=== PATIENT | male | born 1930 | race Caucasian/White ===

== ENCOUNTER 2016-12-27 11:00 | Outpatient (RCR) | payer MEDICARE, BC, OTHER ==
[~2016-12-27 11:00] MED LIST: ASPIRIN 32325 MG/TAB PO; ATORVASTATIN; CEPHALEXIN500 M1 PO; COD; COUGH; FLEXERIL10 MG PO; HCTZ; HCTZ 25MG TAB25 MG PO; LEVAQUIN 5500 MG/TA1 PO; LIPITOR20 MG PO; LORTAB 5/500 501 TAB PO; LOTENSIN10 MG PO; LOTENSIN20 MG PO; MAREPA1200 MG PO; MASON NATURAL1200 MG PO; MULTIPLE VITAMI1 CAP PO; MULTIPLE VITAMI1 TA5 PO; NEXIUM 40MG40 MG PO; PLAVIX 75MG TAB75 MG PO; RESTORIL 1515 MG/CAP; RESTORIL 1515 MG/CAP PO; TAMIFLU 75MG75 MG PO; VENTOLIN0.09 MG IH
== END 2017-01-27 | disposition home or self-care (01) ==
LOC: WSPT
DX: M51.37 Other intervertebral disc degeneration, lumbosacral region (principal)
CPT/HCPCS: G8978-GP; G8979-GP; G8980-GP; G8981-GP; G8982-GP

== ENCOUNTER 2018-02-02 11:30 | Outpatient (RCR) | payer MEDICARE, BC, OTHER | END 2018-02-02 12:27 | disposition home or self-care (01) | LOC: WSPT 11:30 | DX: B02.29 Other postherpetic nervous system involvement (principal) | CPT/HCPCS: G8978-GP; G8979-GP ==

== ENCOUNTER 2018-07-22 11:15 | Outpatient (RCR) | payer MEDICARE, BC, OTHER | END 2018-08-09 | disposition home or self-care (01) | LOC: WSPT | DX: M51.37 Other intervertebral disc degeneration, lumbosacral region (principal); Z79.01 Long term (current) use of anticoagulants; Z79.899 Other long term (current) drug therapy | CPT/HCPCS: G8978-GP; G8979-GP; G8980-GP ==

== ENCOUNTER 2018-11-29 18:12 | Emergency (ER) | payer MEDICARE, BC, OTHER ==
[~2018-11-29] VITALS: Ht 172.7 cm; Wt 86.8 kg
[2018-11-29 18:24] VITALS: TEMP 97.6
[2018-11-29 19:05] LABS: BASO % 0.4 % (0.0-2.0); EOS # 0.4 (0.0-0.7); EOS % 5.4 % (0-4.0); GRAN # 4.4 (1.4-6.5); GRAN % 65.7 % (42.2-75.2); HEMOGLOBIN 11.5 g/dl (13.5-18.0); LYMPH # 1.1 (1.2-3.4); LYMPH % 16.9 % (20.0-51.0); MEAN CELL VOLUME 105 fl (80.0-100.0); MEAN CORPUSCULAR HEMOGLOBIN 35 pg (27.0-31.0); MEAN CORPUSCULAR HGB CONC 33 g/dl (33.0-37.0); MEAN PLATELET VOLUME 9.1 fl (7.4-10.4); MONO # 0.8 (0.1-0.6); MONO % 11.2 % (1.7-9.3); PLATELET COUNT 249 K/mm3 (130-400); RED BLOOD COUNT 3.32 M/mm3 (4.20-5.60); REDCELL DISTRIBUTION WIDTH-CV 13.9 % (11.5-14.5)
[2018-11-29 19:06] LABS: HEMATOCRIT 34.8 % (42.0-52.0)
[2018-11-29 19:19] LABS: ALBUMIN 4.2 gm/dL (3.5-5.0); BILIRUBIN,TOTAL 0.5 mg/dL (0.0-1.0); C-REACTIVE PROTEIN 0.9 mg/dL (0.0-0.9); CALCIUM 9.5 mg/dL (8.4-10.2); CREATININE, serum 1.6 mg/dL (0.66-1.25); POTASSIUM 4.3 mmol/L (3.4-5.0); TOTAL PROTEIN 9.3 gm/dL (6.4-8.2)
[2018-11-29 19:44] LABS: COLLECTION METHOD CLEAN CATCH
[2018-11-29 19:50] LABS: PH 6 (5-8); SQUAMOUS EPITHELIAL 0-2 /hpf; URINE APPEARANCE Clear; URINE BACTERIA None Seen /hpf; URINE BILIRUBIN Negative (NEGATIVE); URINE BLOOD 1+ (NEGATIVE); URINE COLOR Straw; URINE GLUCOSE Negative (NEGATIVE); URINE KETONE Negative (NEGATIVE); URINE LEUKOCYTE ESTERASE Negative (NEGATIVE); URINE NITRATE Negative (NEGATIVE); URINE PROTEIN(semi-quant) Negative (NEGATIVE); URINE RBC 0-2 /hpf; URINE UROBILINOGEN Negative (NEGATIVE)
[2018-11-29 21:39] VITALS: BP 175/92; PULSE 66
== END 2018-11-29 21:39 | disposition home or self-care (01) ==
LOC: COL.ER 18:12
PROVIDERS: Emergency Medicine
DX: G89.29 Other chronic pain (principal); M54.5 Low back pain; I10 Essential (primary) hypertension; K21.9 Gastro-esophageal reflux disease without esophagitis; E78.5 Hyperlipidemia, unspecified; M19.90 Unspecified osteoarthritis, unspecified site; Z79.02 Long term (current) use of antithrombotics/antiplatelets; Z86.73 Personal history of transient ischemic attack (TIA), and cerebral infarction without residual deficits
CPT/HCPCS: J2405; J3010; J7040

== ENCOUNTER → 2018-12-23 | Outpatient (CLI) | payer MEDICARE, BC, OTHER | LOC: COL.RAD 10:17 | DX: K80.20 Calculus of gallbladder without cholecystitis without obstruction (principal); N28.1 Cyst of kidney, acquired ==

== ENCOUNTER 2019-01-22 17:44 | Emergency (ER) | payer MEDICARE, BC, OTHER ==
[~2019-01-22] VITALS: Ht 172.7 cm; Wt 81.8 kg
[2019-01-22 17:55] VITALS: TEMP 98.1
[2019-01-22 18:17] LABS: BASO % 0.3 % (0.0-2.0); EOS # 0.1 (0.0-0.7); EOS % 1.4 % (0-4.0); GRAN # 4.4 (1.4-6.5); GRAN % 67.5 % (42.2-75.2); HEMOGLOBIN 10.1 g/dl (13.5-18.0); INR 1.2 (0.8-3.0); LYMPH # 1.1 (1.2-3.4); LYMPH % 16.3 % (20.0-51.0); MEAN CELL VOLUME 106 fl (80.0-100.0); MEAN CORPUSCULAR HEMOGLOBIN 34 pg (27.0-31.0); MEAN CORPUSCULAR HGB CONC 32 g/dl (33.0-37.0); MEAN PLATELET VOLUME 9.8 fl (7.4-10.4); MONO # 0.9 (0.1-0.6); PLATELET COUNT 238 K/mm3 (130-400); PROTHROMBIN TIME 13.2 SECONDS (9.7-12.8); RED BLOOD COUNT 2.97 M/mm3 (4.20-5.60); REDCELL DISTRIBUTION WIDTH-CV 14.5 % (11.5-14.5)
[2019-01-22] MEDS ORDERED: ZOLOFT 50MG50 MG PO (18:18)
[2019-01-22] MEDS ORDERED: RESTORIL 1515 MG/CAP PO (18:18)
[2019-01-22] MEDS ORDERED: HCTZ 25MG TAB25 MG PO (18:18)
[2019-01-22 18:19] LABS: HEMATOCRIT 31.6 % (42.0-52.0)
[2019-01-22] MEDS ORDERED: PROTONIX 40MG T40 MG PO (18:19)
[2019-01-22] MEDS ORDERED: LYRICA 50MG CAP50 MG PO (18:19)
[2019-01-22] MEDS ORDERED: TYLENOL 325MG325 MG PO (18:20)
[2019-01-22 18:28] LABS: ALBUMIN 3.9 gm/dL (3.5-5.0); BILIRUBIN,TOTAL 0.7 mg/dL (0.0-1.0); CALCIUM 9.1 mg/dL (8.4-10.2); CREATININE, serum 1.5 (0.66-1.25); POTASSIUM 3.7 mmol/L (3.4-5.0); TOTAL PROTEIN 8.9 gm/dL (6.4-8.2)
[2019-01-22 19:32] LABS: TROPONIN-I 1.11 ng/mL (0.000-0.035)
[2019-01-22 20:05] VITALS: BP 127/80; PULSE 74
== END 2019-01-22 20:05 | disposition short-term general hospital (02) ==
LOC: COL.ER 17:44
PROVIDERS: Emergency Medicine
DX: G45.9 Transient cerebral ischemic attack, unspecified (principal); I69.320 Aphasia following cerebral infarction; R79.89 Other specified abnormal findings of blood chemistry; I10 Essential (primary) hypertension; E78.5 Hyperlipidemia, unspecified; Z79.02 Long term (current) use of antithrombotics/antiplatelets
CPT/HCPCS: J7030

== ENCOUNTER → 2019-02-04 | Outpatient (CLI) | payer MEDICARE, BC, OTHER ==
[~2019-02-04] MED LIST changes: +LYRICA 50MG CAP50 MG PO; +PROTONIX 40MG T40 MG PO; +TYLENOL 325MG325 MG PO; +ZOLOFT 50MG50 MG PO
== END ==
LOC: COL.RAD 09:23
DX: C90.00 Multiple myeloma not having achieved remission (principal); S32.020A Wedge compression fracture of second lumbar vertebra, initial encounter for closed fracture; S32.030A Wedge compression fracture of third lumbar vertebra, initial encounter for closed fracture

== ENCOUNTER → 2019-02-07 | Outpatient (REF) ==
[2019-02-07 18:26] LABS: COLLECTION METHOD CLEAN CATCH
[2019-02-07 18:34] LABS: PH 6 (5-8); SQUAMOUS EPITHELIAL 0-2 /hpf; URINE APPEARANCE Clear; URINE BACTERIA None Seen /hpf; URINE BILIRUBIN Negative (NEGATIVE); URINE BLOOD Negative (NEGATIVE); URINE COLOR Yellow; URINE GLUCOSE Negative (NEGATIVE); URINE KETONE Negative (NEGATIVE); URINE LEUKOCYTE ESTERASE Negative (NEGATIVE); URINE NITRATE Negative (NEGATIVE); URINE PROTEIN(semi-quant) 2+ (NEGATIVE); URINE UROBILINOGEN >=4.0 mg/dL (NEGATIVE); URINE WBC 0-2 /hpf
== END ==
LOC: ZCOL.LAB 18:24
PROVIDERS: Family Medicine
DX: R82.90 Unspecified abnormal findings in urine (principal)

== ENCOUNTER → 2019-05-04 | Outpatient (CLI) | payer MEDICARE, BC, OTHER | LOC: COL.VAS 12:54 | DX: R60.0 Localized edema (principal) ==

== ENCOUNTER 2019-05-24 15:23 | Emergency (ER) | payer MEDICARE, BC, OTHER ==
[2019-05-24 16:51] VITALS: BP 105/66; PULSE 77
== END 2019-05-24 17:05 | disposition home or self-care (01) ==
LOC: COL.ER 15:23
DX: S00.93XA Contusion of unspecified part of head, initial encounter (principal); R40.2412 Glasgow coma scale score 13-15, at arrival to emergency department; F03.90 Unspecified dementia, unspecified severity, without behavioral disturbance, psychotic disturbance, mood disturbance, and anxiety; Z79.02 Long term (current) use of antithrombotics/antiplatelets; Z86.73 Personal history of transient ischemic attack (TIA), and cerebral infarction without residual deficits; W01.198A Fall on same level from slipping, tripping and stumbling with subsequent striking against other object, initial encounter; Y92.129 Unspecified place in nursing home as the place of occurrence of the external cause

== ENCOUNTER 2019-05-30 03:06 | Observation (INO) | payer MEDICARE, BC, OTHER ==
[~2019-05-30] VITALS: Ht 167.6 cm; Wt 67.6 kg
[2019-05-30 03:21] LABS: HEMOGLOBIN 10.9 g/dl (13.5-18.0); MEAN CELL VOLUME 100 fl (80.0-100.0); MEAN CORPUSCULAR HEMOGLOBIN 32 pg (27.0-31.0); MEAN CORPUSCULAR HGB CONC 32 g/dl (33.0-37.0); PLATELET COUNT 440 K/mm3 (130-400); RED BLOOD COUNT 3.44 M/mm3 (4.20-5.60); REDCELL DISTRIBUTION WIDTH-CV 17.2 % (11.5-14.5)
[2019-05-30 03:30] LABS: INR 1.1 (0.8-3.0); PROTHROMBIN TIME 12.9 SECONDS (9.7-12.8)
[2019-05-30 03:31] LABS: BILIRUBIN,TOTAL 0.9 mg/dL (0.0-1.0); CALCIUM 8.5 mg/dL (8.4-10.2); CREATININE, serum 1.11 (0.66-1.25); HEMATOCRIT 34.5 % (42.0-52.0); MAGNESIUM 1.5 mg/dL (1.6-2.3); PHOSPHOROUS 2.5 mg/dL (2.5-4.5); POTASSIUM 4.2 mmol/L (3.4-5.0); TOTAL PROTEIN 7.2 gm/dL (6.4-8.2)
[2019-05-30 03:32] LABS: PARTIAL THROMBOPLASTIN TIME 32.1 SECONDS (26.0-37.0)
[2019-05-30 03:42] LABS: TROPONIN-I 0.013 ng/mL (0.000-0.035)
[2019-05-30 03:43] LABS: ANISOCYTOSIS 1+; BAND 3 % (0-10); EOSINOPHIL 6 % (0-4); LYMPHOCYTE 5 % (20.0-51.0); NEUTROPHILS 78 % (42.0-75.2); OVALOCYTES 1+; PLATELET ESTIMATE INCREASED (NORMAL)
[2019-05-30] MEDS ORDERED: LASIX 40MG TABL40 MG PO (04:05)
[2019-05-30] MEDS ORDERED: LIPITOR 40MG TA40 MG PO (04:08)
[2019-05-30] MEDS ORDERED: ASPIRIN E.C. 8181 MG PO (04:10)
[2019-05-30] MEDS ORDERED: TOPROL XL 25MG25 MG PO (04:13)
[2019-05-30] MEDS ORDERED: REMERON 15M15 MG/TA1 PO (04:14)
[2019-05-30] MEDS ORDERED: ZOLOFT 100MG100 MG PO (04:20)
[2019-05-30] MEDS ORDERED: TYLENOL 500MG500 MG PO (04:23)
[2019-05-30 06:06] LABS: COLLECTION METHOD CLEAN CATCH
[2019-05-30 06:13] LABS: PH 6 (5-8); SQUAMOUS EPITHELIAL None Seen /hpf; URINE APPEARANCE Clear; URINE BACTERIA None Seen /hpf; URINE BILIRUBIN Negative (NEGATIVE); URINE BLOOD Negative (NEGATIVE); URINE COLOR Yellow; URINE GLUCOSE Negative (NEGATIVE); URINE KETONE Negative (NEGATIVE); URINE LEUKOCYTE ESTERASE Negative (NEGATIVE); URINE NITRATE Negative (NEGATIVE); URINE PROTEIN(semi-quant) Negative (NEGATIVE); URINE RBC 0-2 /hpf; URINE UROBILINOGEN Negative (NEGATIVE)
--- NOTE | 2019-05-30 08:47 | NUR ---
PATIENT IS ADMITTED TO ROOM 313. HE COMPLAINS OF ITCHY SKIN. I HAVE APPLIED LOTION TO HIS FRONT AND BACK OF THE TORSO AND BOTH LEGS. DENIES PAIN OR OTHER NEEDS BED ALARM IS ON AND FAMILY IS AT BEDSIDE.
[2019-05-30 09:00] VITALS: BP 134/73; PULSE 85; TEMP 98.4
--- NOTE | 2019-05-30 11:00 | NUR ---
PATIENT REFUSES TO DO THE STROKE TESTING. CONFUSED WITH LOCATION WILL NOT LET US DO VITALS NEUROS OF ANY KIND
--- NOTE | 2019-05-30 14:54 | NUR ---
PATIENT IS AWAKE SITTING AT THE SIDE OF THE BED. REHABILITATION COORDINATOR STAYS WITH HIM. HE IS IMPULSIVE! WANTING HIS PANTS SO HE COULD LEAVE. HE STATES THAT HE IS IN THE NOW. DOESN'T WANT TO EAT.
--- NOTE | 2019-05-30 15:56 | NUR ---
PATIENT UP IN THE CHAIR WITH CHAIR ALARM ON
--- NOTE | 2019-05-30 16:23 | NUR ---
PATIENT UP IN CHAIR HE IS COOPERATIVE AT THIS TIME. HE REPORTS LOWER BACK PAIN AND REQUESTED PRN TYLENOL 650MG GIVEN PER ORDERS
[2019-05-30 17:08] VITALS: BP 124/69; PULSE 80; TEMP 98.1
--- NOTE | 2019-05-30 19:42 | NUR ---
PATIENT UP IN THE CHAIR WITH FAMILY AT BEDSIDE.
[2019-05-30 19:49] VITALS: BP 103/60; PULSE 77; TEMP 98
--- NOTE | 2019-05-30 23:17 | NUR ---
Report received from MARTINEZ Calhoun. Shift assessment completed. Patient resting in chair. Moderately confused about where he is. IV patent, flushed. Bowels active. Radial pulses strong. Complains that feet are tingly and I am unable to touch very hard. Upon reassessment, reports they do not hurt as bad. PRN seroquel given while family still at bedside. Family left around 2230. Patient incontinent, brief changed. Denies any further needs at this time. Call light within reach.
[2019-05-30 23:52] VITALS: BP 110/59; PULSE 82; TEMP 98.2
[2019-05-31 04:03] VITALS: BP 128/79; PULSE 93; TEMP 98
[2019-05-31 05:59] LABS: MEAN CELL VOLUME 101 fl (80.0-100.0); MEAN CORPUSCULAR HGB CONC 31 g/dl (33.0-37.0); PLATELET COUNT 445 K/mm3 (130-400); REDCELL DISTRIBUTION WIDTH-CV 17.5 % (11.5-14.5)
[2019-05-31 06:00] LABS: HEMATOCRIT 31.4 % (42.0-52.0); HEMOGLOBIN 9.8 g/dl (13.5-18.0); MEAN CORPUSCULAR HEMOGLOBIN 32 pg (27.0-31.0)
[2019-05-31 06:08] LABS: CALCIUM 7.9 mg/dL (8.4-10.2); CREATININE, serum 1.02 (0.66-1.25); POTASSIUM 4.1 mmol/L (3.4-5.0)
--- NOTE | 2019-05-31 06:08 | NUR ---
Patient was very confused throughout the night. Insisted on getting up at 4 am. Were able to convince him to sit in the chair. Kept the bed alarm and the chair alarm on at all times. Patient reported having pain in his feet. PRN tylenol was given. Also states that his back is very itchy. Lotion was rubbed on his back. Had one episode of incontience throughout the night. Brief was changed. Patient is resting in chair. Call light within reach.
[2019-05-31 06:29] LABS: ANISOCYTOSIS 2+; EOSINOPHIL 13 % (0-4); LYMPHOCYTE 9 % (20.0-51.0); NEUTROPHILS 70 % (42.0-75.2); PLATELET ESTIMATE INCREASED (NORMAL)
[2019-05-31 06:31] LABS: BURR CELLS 1+
[2019-05-31 06:32] LABS: OVALOCYTES 1+; TEAR DROP CELLS 1+
--- NOTE | 2019-05-31 07:00 | NUR ---
Report given to MARTINEZ Ochoa.
[2019-05-31 07:27] VITALS: BP 112/61; PULSE 85; TEMP 97.4
--- NOTE | 2019-05-31 07:38 | NUR ---
Pt assessment complete. Pt is in bed upon entry, has been very anxious this morning, attempting to get out of bed several times stating "it's time to get going". Pt reoriented easily. Pt is oriented to person and time only, patient reminded he is in [place], [place] but quickly reverts to thinking he is in [place]. Pt is constantly scratching his skin everywhere, stating he has "shingles". Pt examined, no visual evidence of scabbing or rash at this time. Pt denies being in pain, but states he will be soon. Pt denies any needs at this time. Breakfast ordered for patient. Bed alarm in place.
[2019-05-31 09:13] VITALS: BP 90/46; PULSE 86
--- NOTE | 2019-05-31 09:30 | NUR ---
At approximately 0915 patient who was sitting in the recliner was yelling out help. Pt had tipped the recliner forward and was laying on the floor. Pt was in yellow with fall precautions in place, chair alarm was in place. He reported he was trying to get to the bathroom for diarrhea, brief full of loose stool. Pt assisted back to the bed, linen changes and pericare provided. Patient denied any pain after the fall. Dr. Sutherland notified. Pt did land on right side, therefore hip xray ordered. Pt in bed with bed alarm and fall precautions in place. Will continue to monitor.
[2019-05-31 10:35] VITALS: BP 104/61
[2019-05-31 11:58] VITALS: BP 113/59; PULSE 78; TEMP 97.6
--- NOTE | 2019-05-31 13:00 | NUR ---
Pt ate lunch without difficulty. Has been pleasantly confused through the day, cooperative with all cares. Resting with eyes closed at this time.
--- NOTE | 2019-05-31 14:41 | NUR ---
Pt attempting to get out of bed again. Pt starting to get more agitated. Saying he isn't interested in what we're selling, he doesn't want a camper. Attempted to reorient the patient who states "I know I'm in the hospital, but I'm not interested in what your selling". Pt's family now at the bedside. Will continue to monitor.
[2019-05-31] MEDS ORDERED: REMERON 15M15 MG/TA1 PO (14:53)
[2019-05-31] MEDS ORDERED: IMODIUM A-D2 MG PO (14:56)
[2019-05-31] MEDS ORDERED: ATIVAN 0.50.5 MG/TAB PO (14:56)
--- NOTE | 2019-05-31 15:39 | NUR ---
KARLEY met with the patient, patient's daughter (Eriak), and son-in-law to discuss discharge plan. The patient resides at [facility] in long-term care. The patient's daughter reports that the plan is for the patient to return back to [facility] upon discharge. KARLEY presented and explained the patient choice form to the patient. The patient's daughter verbalized understanding, signed, and she was provided a copy. The patient's PCP is Dr. Joseph Leon. The patient's Living Will, DNR order, and General DPOA are in EMR. The patient's daughter reports that the patient does have a DPOA-HC completed and that her and her brother, Mahesh, are the patient's DPOA-HC. She states that [facility] should have a copy. KARLEY to request a copy from [facility]. KARLEY contacted and faxed updates to Shelby at [facility]. KARLEY to continue to follow.
[2019-05-31 16:03] VITALS: BP 113/59; PULSE 78; TEMP 97.6
--- NOTE | 2019-05-31 16:08 | NUR ---
The patient is to discharge today, 05/31, back to [facility] for long-term care. Transportation to be provided by [facility]. SW informed the patient, patient's daughter (Erika), and nurse. They were all in agreeance. No additional needs at this time.
--- NOTE | 2019-05-31 16:25 | NUR ---
Pt wheeled out of facility by [facility] staff at this time. IV to LFA dc'd catheter tip intact.
--- NOTE | 2019-05-31 16:30 | NUR ---
Pt report given to [facility] at this time.
== END 2019-05-31 16:00 ==
LOC: COL.ER 03:06 → MEDICAL 06:48
PROVIDERS: Physician Assistant; ADMIT Emergency Medicine
DX: R41.82 Altered mental status, unspecified (principal); D64.9 Anemia, unspecified; D47.3 Essential (hemorrhagic) thrombocythemia; F03.90 Unspecified dementia, unspecified severity, without behavioral disturbance, psychotic disturbance, mood disturbance, and anxiety; C90.00 Multiple myeloma not having achieved remission; I10 Essential (primary) hypertension; E78.5 Hyperlipidemia, unspecified; F32.9 Major depressive disorder, single episode, unspecified; I42.0 Dilated cardiomyopathy; E83.42 Hypomagnesemia; K21.9 Gastro-esophageal reflux disease without esophagitis; Z86.73 Personal history of transient ischemic attack (TIA), and cerebral infarction without residual deficits; Z79.82 Long term (current) use of aspirin; Z79.02 Long term (current) use of antithrombotics/antiplatelets; Z87.891 Personal history of nicotine dependence; Z92.21 Personal history of antineoplastic chemotherapy
CPT/HCPCS: A9585; G0378; J3475; J7040

== ENCOUNTER → 2019-12-18 | Outpatient (CLI) | payer MEDICARE, BC, OTHER ==
[~2019-12-18] MED LIST changes: +ASPIRIN E.C. 8181 MG PO; +ATIVAN 0.50.5 MG/TAB PO; +IMODIUM A-D2 MG PO; +LASIX 40MG TABL40 MG PO; +LIPITOR 40MG TA40 MG PO; +REMERON 15M15 MG/TA1 PO; +TOPROL XL 25MG25 MG PO; +TYLENOL 500MG500 MG PO; +ZOLOFT 100MG100 MG PO
[2019-12-18 19:31] LABS: COLLECTION METHOD CLEAN CATCH
[2019-12-18 19:51] LABS: PH 6 (5-8); SQUAMOUS EPITHELIAL 0-2 /hpf; URINE APPEARANCE Turbid; URINE BACTERIA None Seen /hpf; URINE BILIRUBIN Negative (NEGATIVE); URINE BLOOD 1+ (NEGATIVE); URINE COLOR Yellow; URINE GLUCOSE Negative (NEGATIVE); URINE KETONE Negative (NEGATIVE); URINE LEUKOCYTE ESTERASE 3+ (NEGATIVE); URINE NITRATE Negative (NEGATIVE); URINE PROTEIN(semi-quant) 2+ (NEGATIVE); URINE UROBILINOGEN Negative (NEGATIVE); URINE WBC >50 /hpf
== END ==
LOC: ZCOL.LAB 16:58
PROVIDERS: Internal Medicine
DX: N39.0 Urinary tract infection, site not specified (principal)

== ENCOUNTER → 2019-12-21 | Outpatient (CLI) | payer MEDICARE, BC, OTHER | LOC: ZCOL.LAB 17:43 | DX: N39.0 Urinary tract infection, site not specified (principal) ==